=== PATIENT | male | born 1975 | race Caucasian/White ===

== ENCOUNTER 2017-01-09 03:14 | Inpatient (IN) | payer OTHER ==
[~2017-01-09] VITALS: Ht 167.6 cm; Wt 89.6 kg
[2017-01-09] MEDS ORDERED: LEVETIRACETAM 1,000 MG in SODIUM CHLORIDE 0.9% 100 ML IV ONE (05:00)
[2017-01-09 05:18] LABS: HEMATOCRIT 45.3 % (39.2-51.8); HEMOGLOBIN 15.9 g/dL (13.7-18.0); WHITE BLOOD COUNT 7.9 x10^3/uL (3.4-10)
[2017-01-09 05:29] LABS: BLOOD UREA NITROGEN 7 mg/dL (7-18)
[2017-01-09] MEDS: NS + 20MEQ KCL 1,000 ML IV SCH ×2 (05:46→22:47)
[2017-01-09] MEDS ORDERED: DOCUSATE 100 MG CAPSULE PO PRN (06:00)
[2017-01-09] MEDS ORDERED: ACETAMINOPHEN 325 MG TABLET PO PRN (06:00)
[2017-01-09] MEDS ORDERED: OXYcodone IR 5MG TABLET PO PRN (06:00)
[2017-01-09] MEDS ORDERED: morphine SULFATE 10 MG/ML, 1ML IVPush PRN (06:00)
[2017-01-09] MEDS ORDERED: ONDANSETRON 2MG/ML, 2ML IVPush PRN (06:00)
[2017-01-09] MEDS ORDERED: POLYETHYLENE GLYCOL 17 GM PACKET PO PRN (06:00)
[2017-01-09] MEDS ORDERED: LORazepam 2 MG/ML, 1ML IVPush PRN (06:00)
[2017-01-09] MEDS ORDERED: LORazepam 1MG TABLET PO PRN (06:00)
[2017-01-09] MEDS ORDERED: NS + 20MEQ KCL 1,000 ML IV ONE (07:05)
[2017-01-09] MEDS ORDERED: PANTOPRAZOLE 40 MG IV ONE (09:45)
[2017-01-09] MEDS: PANTOPRAZOLE 40 MG IV IVPush SCH (09:47)
[2017-01-09 10:55] VITALS: BP_SYST 103; BP_SYST 120; BP_DIAS 55; BP_DIAS 77
[2017-01-09 14:00] VITALS: BP 114/70
[2017-01-09 14:30] LABS: ASPARTATE AMINO TRANSFERASE 57 U/L (15-37)
[2017-01-09] MEDS: FOLIC ACID 1 MG TABLET PO SCH (15:46)
[2017-01-09] MEDS: THIAMINE 100MG TABLET PO SCH (15:47)
[2017-01-09 18:00] VITALS: BP 136/85
[2017-01-09] MEDS: LEVETIRACETAM 500 MG TABLET PO SCH (21:05)
[2017-01-09 22:00] VITALS: BP 151/87
[2017-01-10 00:58] VITALS: BP 139/83
[2017-01-10 02:00] VITALS: BP 139/83
[2017-01-10 03:59] VITALS: BP 125/84
[2017-01-10 06:16] LABS: HEMATOCRIT 43.2 % (39.2-51.8); HEMOGLOBIN 14.9 g/dL (13.7-18.0); WHITE BLOOD COUNT 8.4 x10^3/uL (3.4-10)
[2017-01-10 06:28] LABS: BLOOD UREA NITROGEN 8 mg/dL (7-18)
[2017-01-10 06:32] LABS: ASPARTATE AMINO TRANSFERASE 47 U/L (15-37)
[2017-01-10] MEDS ORDERED: SODIUM PHOSPHATE 20 MMOL in SODIUM CHLORIDE 0.9% 500 ML IV ONE (07:00)
[2017-01-10 07:49] VITALS: BP 137/91
[2017-01-10] MEDS: FOLIC ACID 1 MG TABLET PO SCH (08:33)
[2017-01-10] MEDS: THIAMINE 100MG TABLET PO SCH (08:33)
[2017-01-10] MEDS: LEVETIRACETAM 500 MG TABLET PO SCH (08:33)
[2017-01-10] MEDS: PANTOPRAZOLE 40 MG IV IVPush SCH (08:33)
[2017-01-10] MEDS ORDERED: MULTIVITAMIN 1 TABLET PO SCH (09:00)
[2017-01-10 13:09] VITALS: BP 127/84
[2017-01-10] MEDS ORDERED: LEVE500T53 PO (14:43)
[2017-01-10 15:25] VITALS: BP 148/92
== END 2017-01-10 16:48 | disposition home or self-care (01) | DRG 896 ==
LOC: ED 04:35 → EDIP 04:51 → CCU 10:27 → 4EST 01-10 00:30
PROVIDERS: ADMIT Family Medicine; ATTEND Family Medicine
DX: F10.129 Alcohol abuse with intoxication, unspecified (principal); S06.6X9A Traumatic subarachnoid hemorrhage with loss of consciousness of unspecified duration, initial encounter; S00.03XA Contusion of scalp, initial encounter; Y90.1 Blood alcohol level of 20-39 mg/100 ml; W18.39XA Other fall on same level, initial encounter; Y93.89 Activity, other specified; Y92.89 Other specified places as the place of occurrence of the external cause; Y99.8 Other external cause status
CPT/HCPCS: 36415; 70450; 80053; 80307; 83735; 84100; 85025; 85730; 87081; J1953; J3480; C9113; G0479; J7040